=== PATIENT | female | born 1985 | race Caucasian/White ===

== ENCOUNTER 2017-03-12 03:14 | Inpatient (IN) | END 2017-03-14 12:55 | disposition home or self-care (01) | DRG 775 ==

== ENCOUNTER 2018-04-27 14:49 | Emergency (ER) | payer MEDICAID ==
[~2018-04-27] VITALS: Ht 160 cm; Wt 48.1 kg
[~2018-04-27 14:49] MED LIST: PREN-93 PO
[2018-04-27 14:58] VITALS: Ht 160 cm; Wt 48.1 kg
[2018-04-27] MEDS ORDERED: IBUPROFEN 200 MG TAB PO ONE (17:30)
[2018-04-27] MEDS ORDERED: ACET500C5 PO (19:31)
--- NOTE | 2018-04-27 22:50 | ERD ---
ER Documentation Chief Complaint Chief Complaint L breast pain x several days; already seen PMD HPI 32-year-old female patient with no significant past medical history presents to ED complaining of left breast pain that started a few days ago. Patient saw the PCP and was sent here for ultrasound of her breast. Reports that she is currently breast-feeding her 1-year-old son. Denies any fever, chills, increased redness or swelling. Denies any family history of breast cancer. ROS All systems reviewed and are negative except as per history of present illness. Medications Home Meds Active Scripts Acetaminophen* (Tylophen*) 500 Mg Capsule, 1 CAP PO Q6H PRN for PAIN AND OR ELEVATED TEMP, #20 CAP Prov:BARBARA LOMBARDO PA-C 04/27/18 Reported Medications Vit No.124/Iron/FA ( Vitamin Tablet) 1 Each Tablet, 1 EACH PO, TAB 03/12/17 Allergies Allergies: Coded Allergies: No Known Allergy (Unverified , 03/12/17) PMhx/Soc Medical and Surgical Hx: pt denies Medical Hx, pt denies Surgical Hx Hx Alcohol Use: No Hx Substance Use: No Hx Tobacco Use: No Smoking Status: Never smoker FmHx Family History: No diabetes, No coronary disease Physical Exam Vitals Vital Signs Date Temp Pulse Resp B/P (MAP) Pulse Ox O2 O2 Flow FiO2 Time Delivery Rate 04/27/18 97.5 83 20 110/68 99 14:58 (82) Physical Exam Const: Xhr-gfz-naoisbiem, well-nourished. In no acute distress. Head: Atraumatic, normocephalic Eyes: Normal Conjunctiva without injection. No purulent discharge. PERRL. EOMI ENT: Normal external ear. Ear canal without erythema. Tympanic membrane pearly harman without effusion or bulging. Nasal canal clear with normal turbinates. Moist oropharynx without tonsillar exudates. Non-erythematous pharynx. Uvula midline. No drooling. No trismus. Neck: Full range of motion. No meningismus. No cervical lymphadenopathy. Resp: Clear to auscultation bilaterally. No wheezing, rhonchi, rales, or crackles. No accessory muscle use. No retractions. Breast: Bilateral normal breasts with no erythema, purulent discharge, fl uctuance or induration. Tender to palpation of the inferior portion of patient's right breast. No masses or cysts palpated. Cardio: Regular rate and rhythm. No murmurs, rubs or gallops. Abd: Soft, non tender, non distended. Normal bowel sounds. No palpable masses. No rebound tenderness. No guarding. Skin: No petechiae or rashes Back: No midline tenderness. No CVA tenderness. Ext: No cyanosis, or edema. Neur: Awake and alert. Psych: Normal Mood and Affect Results 24 hrs Laboratory Tests Test 04/27/18 17:41 04/27/18 18:06 POC Beta HCG, Qualitative NEGATIVE NEGATIVE Current Medications Medications Dose Sig/Neeraj Start Time Status Last (Trade) Ordered Route PRN Stop Time Admin Dose Reason Admin Ibuprofen 400 mg ONCE ONCE 04/27/18 DC 04/27/18 (Motrin) PO 17:30 17:43 04/27/18 17:31 Procedures/MDM 32-year-old female patient with no significant past medical history presents to ED complaining of left breast pain that started a few days ago. Patient is afebrile and nontoxic-appearing. IMPRESSION: 1. Sonographically unremarkable breasts. Differential diagnosis considered include but is not limited to fibroadenoma, cyst, fibrocystic changes, malignancy. Low suspicion for mastitis, deep space infection, sepsis, cellulitis, or other emergent conditions. Diagnosis: Breast Pain Discharge medications: Tylenol Follow up with primary care physician in 1-2 days for a mammogram. Instructed patient to return to the ED sooner for any worsening symptoms. Patient's questions were answered. Patient is hemodynamically stable. Patient understood and agreed with discharge plan. Patient discharged stable. Disclaimer: Inadvertent spelling and grammatical errors are likely due to EHR/dictation software use and do not reflect on the overall quality of patient care. Also, please note that the electronic time recorded on this note does not necessarily reflect the actual time of the patient encounter. Departure Diagnosis: Primary Impression: Breast pain Condition: Stable Patient Instructions: Breast Self-Exam (BSE) Referrals: COMM[facility]ITY CLIN[facility] YOU HAVE RECEIVED A MEDICAL SCREENING EXAM AND THE RESULTS INDICATE THAT YOU DO NOT HAVE A CONDITION THAT REQUIRES URGENT TREATMENT IN THE EMERGENCY DEPARTMENT. FURTHER EVALUATION AND TREATMENT OF YOUR CONDITION CAN WAIT UNTIL YOU ARE SEEN IN YOUR DOCTORS OFFICE WITHIN THE NEXT 1-2 DAYS. IT IS YOUR RESPONSIBILITY TO MAKE AN APPOINTMENT FOR FOLOW-UP CARE. IF YOU HAVE A PRIMARY DOCTOR --you should call your primary doctor and schedule an appointment IF YOU DO NOT HAVE A PRIMARY DOCTOR YOU CAN CALL OUR PHYSICIAN REFERRAL HOTLINE AT IF YOU CAN NOT AFFORD TO SEE A PHYSICIAN YOU CAN CHOSE FROM THE FOLLOWING [facility] [address] [facility] [address] [facility] [address] [facility] [address] [facility] [address] [facility]. [facility] [address] [facility]. [facility] YOU HAVE RECEIVED A MEDICAL SCREENING EXAM AND THE RESULTS INDICATE THAT YOU DO NOT HAVE A CONDITION THAT REQUIRES URGENT TREATMENT IN THE EMERGENCY DEPARTMENT. FURTHER EVALUATION AND TREATMENT OF YOUR CONDITION CAN WAIT UNTIL YOU ARE SEEN IN YOUR DOCTORS OFFICE WITHIN THE NEXT 1-2 DAYS. IT IS YOUR RESPONSIBILITY TO MAKE AN APPOINTMENT FOR FOLOW-UP CARE. IF YOU HAVE A PRIMARY DOCTOR --you should call your primary doctor and schedule and appointment IF YOU DO NOT HAVE A PRIMARY DOCTOR YOU CAN CALL OUR PHYSICIAN REFERRAL HOTLINE AT . IF YOU CAN NOT AFFORD TO SEE A PHYSICIAN YOU CAN CHOSE FROM THE FOLLOWING [facility]: [facility] [address] [place] [address] [facility] [address] [place] [address] [facility] [address] [place] [address] [facility] URGENT C[facility]/SPECIALTIES Additional Instructions: Llame al doctor MAANA y jen leigh CAR[place] PARA DENTRO DE 2-3 GATES.Dgale a la secretaria que nosotros le instruimos hacer esta carolina.Avise o llame si chapman condicin se empeora antes de la carolina. Regresa aqui si peor o no mejor. BARBARA LOMBARDO PA-C Apr 27, 2018 22:50
== END 2018-04-27 20:40 | disposition left against medical advice (07) ==
LOC: FTE 14:49
DX: N64.4 Mastodynia (principal)
CPT/HCPCS: 76641; 81025; Z7502; Z7610